=== PATIENT | female | born 2000 ===

== ENCOUNTER 2018-05-12 07:56 | Emergency (ER) | payer OTHER ==
[2018-05-12 07:56] VITALS: BMI 23.0
[2018-05-12 08:20] VITALS: O2SAT 98
--- NOTE | 2018-05-12 08:58 | ED PDOC ---
Lower Extremity Pain/Injury Time Seen by Provider: 05/12/18 08:21 Chief Complaint (Nursing): Lower Extremity Problem/Injury History Per: Patient (Ceci is here because worsening knee pain since yesterday. States that she has had knee problems for years and that she had x- rays severeal years back that showed fluid but did not have further evaluation and treatment. Her mom put some cream on the right yesterday and it made the pain slight better. She wants to get further dignostic studies done. ) Past Medical History Reviewed: Historical Data, Nursing Documentation, Vital Signs Vital Signs: Last Vital Signs Temp 98.1 F 05/12/18 08:01 Pulse 84 05/12/18 08:01 Resp 16 05/12/18 08:01 BP 111/76 05/12/18 08:01 Pulse Ox 98 05/12/18 08:16 - Medical History PMH: Depression - Surgical History Surgical History: No Surg Hx - Family History Family History: States: No Known Family Hx - Living Arrangements Living Arrangements: With Family - Social History Current smoker - smoking cessation education provided: Yes (marijuana) - Immunization History Hx Tetanus Toxoid Vaccination: No Hx Influenza Vaccination: No Hx Pneumococcal Vaccination: No - Home Medications Home Medications: Ambulatory Orders Medication Instructions Recorded No Known Home Med 05/12/18 - Allergies Allergies/Adverse Reactions: Allergies Allergy/AdvReac Type Severity Reaction Status Date / Time No Known Allergies Allergy Verified 05/12/18 08:16 Review of Systems ROS Statement: Except As Marked, All Systems Reviewed And Found Negative Eyes: Negative for: Pain, Conjunctivae Inflammation, Eyelid Inflammation, Redness Gastrointestinal: Negative for: Nausea, Vomiting, Abdominal Pain Musculoskeletal: Positive for: Leg Pain. Negative for: Neck Pain, Shoulder Pain, Arm Pain, Back Pain, Foot Pain Skin: Negative for: Rash Neurological: Negative for: Weakness, Numbness Physical Exam - Reviewed Nursing Documentation Reviewed: Yes Vital Signs Reviewed: Yes - Physical Exam Appears: Positive for: Well, Non-toxic, No Acute Distress Head Exam: Positive for: ATRAUMATIC, NORMAL INSPECTION, NORMOCEPHALIC Skin: Positive for: Normal Color, Warm, DRY Eye Exam: Positive for: Normal appearance, EOMI, PERRL ENT: Positive for: Normal ENT Inspection Neck: Positive for: Normal, Painless ROM Cardiovascular/Chest: Positive for: Regular Rate, Rhythm Respiratory: Positive for: CNT, Normal Breath Sounds Gastrointestinal/Abdominal: Positive for: Normal Exam, Soft Back: Positive for: Normal Inspection Extremity: Positive for: Normal ROM. Negative for: Tenderness, Calf Tenderness, Deformity (no crepitis; no palpable fluid in either knee joint; no redness or induration), Swelling Neurologic/Psych: Positive for: Alert, Oriented - ECG O2 Sat by Pulse Oximetry: 98 Disposition - Clinical Impression Clinical Impression: Chronic knee pain - Disposition Referrals: Shaik Infante MD [Medical Doctor] - Sarbjit Infante MD [Non-Staff] - [facility] [Outside] Disposition Time: 08:40 Condition: STABLE Instructions: Chronic Pain Forms: [employer] ([place]), [facility] ED School/Work Excuse - POA Present On Arrival: None
[2018-05-12 09:12] VITALS: BP 120/70; PULSE 72; RESP 20; TEMP 98
== END 2018-05-12 09:13 | disposition home or self-care (01) ==
LOC: H.ER 07:56
DX: M25.561 Pain in right knee (principal); G89.29 Other chronic pain